=== PATIENT | male | born 1975 ===

== ENCOUNTER 2021-01-08 09:16 | Emergency (ER) | payer OTHER ==
--- NOTE | 2021-01-08 09:36 | EDM.PDOC ---
ED HPI GENERAL MEDICAL PROBLEM - General Stated Complaint: CUT IN THE ABD Time Seen by Provider: 01/08/21 09:24 Source of Information: Reports: Patient, Other (Coworker) History Limitations: Reports: Language Barrier - History of Present Illness INITIAL COMMENTS - FREE TEXT/NARRATIVE: This patient is a 45 year old male that presents to the clinic. I walked in saw this patient. Translated to patient using coworker cell phone that is in the room, to another coworker. The patient reports that he was using a knife to cut at the [employer]. Patient reports he was cutting high up above him, when he dropped the knife and it landed in his abdomen right upper. Upon arrival, the knife is not in the abdomen at this time. Coworker reports the knife was 6 inches in length, unknown how much went into patient. Patient reports pain in the abdomen. I immediately, had RN move patient from clinic to the ER and trauma code was called at 09:21am. Portable chest xray done shows no pneumo or hemothorax, IV inserted, labs drawn. Patient denies any other injuries. Vital signs are stable. GCS 15. Onset: Today Onset Date: 01/08/21 Onset Time: 08:00 Front/Back Body Image: 1 - laceration Severity: Moderate Improves with: Reports: None Worsens with: Reports: None Associated Symptoms: Denies: Confusion, Chest Pain, Cough, cough w sputum, Diaphoresis, Fever/Chills, Headaches, Loss of Appetite, Malaise, Nausea/Vomiting, Rash, Seizure, Shortness of Breath, Syncope, Weakness r abd Pain Score (Numeric/FACES): 4 - Related Data Allergies Allergy/AdvReac Type Severity Reaction Status Date / Time No Known Allergies Allergy Verified 01/08/21 09:46 Home Meds: Home Meds Insulin Aspart [NovoLOG] 5 unit SQ TIDAC 01/08/21 [History] Insulin Detemir [Levemir] 10 unit SUBCUT BEDTIME 01/08/21 [History] metFORMIN HCl [Metformin HCl] 500 mg PO BID 01/08/21 [History] Review of Systems - Review of Systems Review Of Systems: See Below Constitutional: Reports: No Symptoms Eyes: Reports: No Symptoms Ears: Reports: No Symptoms Nose: Reports: No Symptoms Mouth/Throat: Reports: No Symptoms Respiratory: Reports: No Symptoms. Denies: Shortness of Breath, Cough Cardiovascular: Reports: No Symptoms GI/Abdominal: Reports: Abdominal Pain (RUQ, RLQ, LLQ). 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[employer]) General Appearance: Alert, WD/WN, No Apparent Distress Eye Exam: Bilateral Eye: Normal Inspection, PERRL Ears: Normal External Exam, Normal Canal, Hearing Grossly Normal, Normal TMs Ear Exam: Bilateral Ear: Auricle Normal, Canal Normal, TM normal Nose: Normal Inspection, Normal Mucosa, No Blood Throat/Mouth: Normal Inspection, Normal Lips, Normal Teeth, Normal Gums, Normal Oropharynx, Normal Voice, No Airway Compromise Head: Atraumatic, Normocephalic Neck: Normal Inspection, Supple, Non-Tender, Full Range of Motion Respiratory/Chest: No Respiratory Distress, Lungs Clear, Normal Breath Sounds, No Accessory Muscle Use, Other (pain/tenderness Right lower anterior chest at top of RUQ abd. ). No: Accessory Muscle Use, Retractions, Splinting, Prolonged Expiration Cardiovascular: Normal Peripheral Pulses, Regular Rate, Rhythm, No Edema, No Gallop, No JVD, No Murmur, No Rub Peripheral Pulses: 2+: Radial (L), Radial (R), Posterior Tibial (L), Posterior Tibial (R) GI/Abdominal: Normal Bowel Sounds, Soft, Tender (RUQ, RLQ, LLQ.), Other (RUQ open wound laceration. Dressing intact, removed for exam. No air leakage. ). No: Guarding, Rigid, Rebound (Male) Exam: Deferred Rectal (Males) Exam: Deferred Back Exam: Normal Inspection, Full Range of Motion. No: CVA Tenderness (L), CVA Tenderness (R), Decreased Range of Motion, Muscle Spasm, Paraspinal Tenderness, Vertebral Tenderness Extremities: Normal Inspection, Normal Range of Motion, Non-Tender, No Pedal Edema, Normal Capillary Refill Neurological: Alert, Oriented Psychiatric: Normal Affect, Normal Mood Skin Exam: Warm, Dry, Normal Color, No Rash, Wound/Incision (laceration knife wound RUQ abd. ) Course - Vital Signs Last Recorded V/S: Last Vital Signs Temp 97.8 F 01/08/21 09:36 Pulse 83 01/08/21 09:36 Resp 16 01/08/21 09:36 BP 125/71 01/08/21 09:36 Pulse Ox 97 01/08/21 09:36 - Orders/Labs/Meds Labs: Laboratory Tests 01/08/21 01/08/21 01/08/21 Range/Units 09:24 09:28 09:28 WBC 9.2 (5.0-10.0) 10^3/uL RBC 5.45 (4.50-6.00) 10^6/uL Hgb 16.0 (14.0-18.0) g/dL Hct 45.0 (40.0-54.0) % MCV 82.6 (82.0-94.0) fL MCH 29.4 (27.0-32.0) pg MCHC 35.6 (33.0-38.0) g/dL RDW Coeff of Verna 13.4 (11.0-15.0) % Plt Count 216 (150-400) 10^3/uL Neut % (Auto) 67.9 (35-85) % Lymph % (Auto) 20.2 (10-55) % [place] % (Auto) 9.4 (0-16) % Eos % (Auto) 2.2 (0-5) % Baso % (Auto) 0.3 (0-3) % Neut # (Auto) 6.27 (1.80-7.00) 10^3/uL Lymph # (Auto) 1.86 (1.00-4.80) 10^3/uL [place] # (Auto) 0.87 H (0.00-0.80) 10^3/uL Eos # (Auto) 0.20 (0.00-0.45) 10^3/uL Baso # (Auto) 0.03 10^3/uL PT (9.7-12.3) SEC INR (0.92-1.18) Sodium 141 (136-145) mEq/L Potassium 3.5 (3.5-5.0) mEq/L Chloride 102 (98-106) mEq/L Carbon Dioxide 28 (21-32) mmol/L BUN 16 (7-18) mg/dL Creatinine 0.8 (0.7-1.3) mg/dL Est Cr Clr Drug Dosing 124.74 mL/min Estimated GFR (MDRD) > 60 (>=60) mL/min Glucose 168 H (75-99) mg/dL Calcium 8.4 (8.4-10.1) mg/dL Total Bilirubin 0.4 (0.0-1.0) mg/dL AST 23 (15-37) U/L ALT 70 (12-78) U/L Alkaline Phosphatase 126 H (46-116) U/L Lactate Dehydrogenase 194 H (100-190) U/L Creatine Kinase 143 (35-232) U/L Troponin I < 0.017 (0.00-0.06) ng/mL Total Protein 8.1 (6.4-8.2) g/dL Albumin 3.8 (3.4-5.0) g/dL Amylase 50 (25-115) U/L Lipase 72 L (73-393) U/L Urine Color Yellow (YELLOW) Urine Appearance Slightly cloudy (CLEAR) Urine pH 5.5 (4.5-8.0) Ur Specific [place] >= 1.030 H (1.003-1.020) Urine Protein 100 H (NEGATIVE) mg/dL Urine Glucose (UA) 250 H (NEGATIVE) mg/dL Urine Ketones Negative (NEGATIVE) mg/dL Urine Occult Blood Negative (NEGATIVE) Urine Nitrite Negative (NEGATIVE) Urine Bilirubin Negative (NEGATIVE) Urine Urobilinogen 0.2 (0.2-1.0) EU/dL Ur Leukocyte Esterase Trace H (NEGATIVE) Urine RBC 0-5 (0-5) /HPF Urine WBC 50-75 H (0-5) /HPF Urine Bacteria Few H (NOT SEEN) /HPF Urine Mucus Few H (NOT SEEN) /HPF Urinalysis Comment 01/08/21 Range/Units 09:28 WBC (5.0-10.0) 10^3/uL RBC (4.50-6.00) 10^6/uL Hgb (14.0-18.0) g/dL Hct (40.0-54.0) % MCV (82.0-94.0) fL MCH (27.0-32.0) pg MCHC (33.0-38.0) g/dL RDW Coeff of Vern[place] (11.0-15.0) % Plt Count (150-400) 10^3/uL Neut % (Auto) (35-85) % Lymph % (Auto) (10-55) % [place] % (Auto) (0-16) % Eos % (Auto) (0-5) % Baso % (Auto) (0-3) % Neut # (Auto) (1.80-7.00) 10^3/uL Lymph # (Auto) (1.00-4.80) 10^3/uL [place] # (Auto) (0.00-0.80) 10^3/uL Eos # (Auto) (0.00-0.45) 10^3/uL Baso # (Auto) 10^3/uL PT 11.0 (9.7-12.3) SEC INR 1.01 (0.92-1.18) Sodium (136-145) mEq/L Potassium (3.5-5.0) mEq/L Chloride (98-106) mEq/L Carbon Dioxide (21-32) mmol/L BUN (7-18) mg/dL Creatinine (0.7-1.3) mg/dL Est Cr Clr Drug Dosing mL/min Estimated GFR (MDRD) (>=60) mL/min Glucose (75-99) mg/dL Calcium (8.4-10.1) mg/dL Total Bilirubin (0.0-1.0) mg/dL AST (15-37) U/L ALT (12-78) U/L Alkaline Phosphatase (46-116) U/L Lactate Dehydrogenase (100-190) U/L Creatine Kinase (35-232) U/L Troponin I (0.00-0.06) ng/mL Total Protein (6.4-8.2) g/dL Albumin (3.4-5.0) g/dL Amylase (25-115) U/L Lipase (73-393) U/L Urine Color (YELLOW) Urine Appearance (CLEAR) Urine pH (4.5-8.0) Ur Specific [place] (1.003-1.020) Urine Protein (NEGATIVE) mg/dL Urine Glucose (UA) (NEGATIVE) mg/dL Urine Ketones (NEGATIVE) mg/dL Urine Occult Blood (NEGATIVE) Urine Nitrite (NEGATIVE) Urine Bilirubin (NEGATIVE) Urine Urobilinogen (0.2-1.0) EU/dL Ur Leukocyte Esterase (NEGATIVE) Urine RBC (0-5) /HPF Urine WBC (0-5) /HPF Urine Bacteria (NOT SEEN) /HPF Urine Mucus (NOT SEEN) /HPF Urinalysis Comment Meds: Medications Discontinued Medications Generic Name Dose Route Start Last Admin Trade Name Freq PRN Reason Stop Dose Admin Sodium Chloride 500 mls @ 1,000 mls/hr 01/08/21 09:45 01/08/21 12:11 Normal Saline IV Infused .BOLUS BOY Infusion Iopamidol 100 ml 01/08/21 09:44 01/08/21 10:03 Iopamidol 755 Mg/Ml 100 Ml Bottle IVPUSH 01/08/21 09:45 100 ml ONETIME ONE Administration - Radiology Interpretation Free Text/Narrative:: CXR: Portable: No pneumo. no hemothorax. lungs clear. CT Abd/Pelvis/Chest with contrast: Negative Chest: Right upper quadrant small skin defect with vague linear hypodensity extending 4cm into the right lobe of the liver consistent with vague hepatic laceration. No evidence of active hemorrhage or hematoma. Diffuse hepatic steatosis. Trace amount of tracking hemorrhage in the right paracolic gutter and lower pelvis posteriorly. 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 CT Results Date: 01/08/21 CT Results Time: 10:55 - Re-Assessments/Exams Free Text/Narrative Re-Assessment/Exam: 01/08/21 09:21 Contacted [employer] for a load tester. They are currently working on one. 01/08/21 09:59 [employer] load tester used. Patient reports he was cutting above his head with knife in his hand. He reports he brought knife down and accidently stabbed himself in the abdomen. He reports removing the knife when he moved his hand away. He reports that he only has a little pain and has denied pain medications. He denies n, v, shortness of breath, chest pain, back pain, urinary changes. CT scan, labs were explained to the patient. Explained and he repeated back he is to hold his Metformin for 48 hours. Patient reports [place] on the knife. Patient continues to deny pain medication. 01/08/21 11:39 I called and spoke to [facility] trauma surgeon Dr. Oconnor. She reports to transfer the patient. I then spoke to Dr. Smith ER physician about this patient. Reports to transfer patient. No IV Abx at this time. 01/08/21 11:50 I spoke to patient using [employer] load tester. Patient understands all results and reason for transfer. He has been explained all risk vs benefits and accepted. All questions have been answered. Patient reports mild pain at all times, with moderate pain with breathing in. Patient denies pain medication. 01/08/21 12:02 GCS 15 at discharge and during ER stay. Departure - Departure Time of Disposition: 11:56 Disposition: DC/Tfer to Acute Hospital 02 Condition: Serious Clinical Impression: Knife wound Liver laceration Qualifiers: Encounter type: initial encounter Qualified Code(s): S36.113A - Laceration of liver, unspecified degree, initial encounter - Discharge Information *PRESCRIPTION DRUG MONITORING PROGRAM REVIEWED*: Not Applicable *COPY OF PRESCRIPTION DRUG MONITORING REPORT IN PATIENT JOHN: Not Applicable Referrals: PCP,Unknown [Primary Care Provider] - Forms: ED Department Discharge - Assessment/Plan Plan: PLEASE SEE RN NOTE FOR [facility] Risk vs Benefits of transfer explained and accepted by patient. Risk of transfer are MVC, , worsening of condition. The risk of staying in [place] is no trauma surgeon, , worsening of condition. The benefits of transfer are higher level of care, trauma surgeon. The benefits of staying in [place] [employer] is close to home.
[2021-01-08] MEDS ORDERED: Iopamidol 755 Mg/ML 100 ML Bottle IVPUSH ONE (09:44)
[2021-01-08] MEDS ORDERED: Sodium Chloride 0.9% 500 ML IV SCH (09:45)
[2021-01-08 09:47] LABS: CHLORIDE,CL 102 mEq/L (98-106); SODIUM,NA 141 mEq/L (136-145)
== END 2021-01-08 12:50 ==
LOC: CC.ED 09:16
DX: S36.113A Laceration of liver, unspecified degree, initial encounter (principal); W26.0XXA Contact with knife, initial encounter
CPT/HCPCS: 36415; 71045; 71260; 74177; 80053; 81001; 82150; 82550; 83615; 83690; 84484; 85025; 85610; 87086; 99285-25; J7040; Q9967